=== PATIENT | female | born 1980 | race Caucasian/White ===

== ENCOUNTER → 2023-02-13 17:43 | Outpatient (BNVA) | payer OTHER, MEDICAID, SELFPAY | PROVIDERS: Family Provider Family Medicine; PCP Nurse Practitioner Family; Visit Provider Family Medicine | DX: S83.8X2A Sprain of other specified parts of left knee, initial encounter (principal); X58.XXXA Exposure to other specified factors, initial encounter | CPT/HCPCS: 73562 ==

== ENCOUNTER 2023-06-13 19:30 | Emergency (ER) | payer OTHER, BC, MEDICAID, SELFPAY ==
--- NOTE | 2023-06-13 19:41 | USR_ITS ---
PROCEDURE INFORMATION: Exam: US Duplex Left Lower Extremity Veins, Limited Exam date and time: 06/13/2023 8:23 PM Age: 42 years old Clinical indication: Edema, localized; Lower extremity, left; Additional info: Leg swelling TECHNIQUE: Imaging protocol: Real-time duplex ultrasound of the left extremity with 2-D ucriel scale, color Doppler flow and spectral waveform analysis including responses to compression and other maneuvers (when performed) with image documentation. Limited exam focused on the left lower extremity veins. COMPARISON: [place] [id number] 01/06/2019 4:02 PM FINDINGS: Left deep veins: The common femoral, femoral, proximal profunda femoral, popliteal, peroneal and posterior tibial veins are patent without thrombus. Normal Doppler waveforms. Normal compressibility and/or augmentation response. Superficial veins: Greater saphenous vein at the saphenofemoral junction is patent without thrombus. The greater saphenous vein is patent in its entirety. Soft tissues: Unremarkable. US/[place] [id number] IMPRESSION: No evidence of deep vein thrombosis in the left lower extremity.
[2023-06-13 19:52] VITALS: BP 175/97; PULSE 74; RESP 16; TEMP 36.4; O2SAT 100; BMI 39.1
--- NOTE | 2023-06-13 20:12 | XRR_ITS ---
PROCEDURE INFORMATION: Exam: XR Left Knee Exam date and time: 06/13/2023 8:35 PM Age: 42 years old Clinical indication: Patient HX: Left posterior knee pain; No known injury TECHNIQUE: Imaging protocol: Radiologic exam of the left knee. Views: 3 views. COMPARISON: CR XR knee LT 3V* [id number] 02/13/2023 5:50 PM FINDINGS: Bones/joints: There are no fractures or dislocations noted. There is a suprapatellar effusion. Soft tissues: Normal. XR/XR knee LT 3V* [id number] IMPRESSION: Suprapatellar effusion with no fracture noted. Underlying ligamentous injury can not be excluded, recommend clinical correlation and follow-up with MRI as indicated.
--- NOTE | 2023-06-13 20:22 | ED_ITS ---
HPI - Extremity Problem General: Chief complaint: Extremity Injury, Lower Stated complaint: Left leg pain/Swelling Time Seen by Provider: 06/13/23 20:20 History of Present Illness: 42-year-old female comes in today with c omplaints of left leg pain radiating from her calf to her hip. Patient reports a lot of the pain is in the knee itself. Patient appears nontoxic. Patient appears in no acute distress. No obvious redness is noted to the extremity. Sensation and cap refill is intact. Patient denies any recent injury. Patient reports no falls. Review of Systems General: Reports: 10 or more systems reviewed and unremarkable except in HPI and below Musc: Reports: extremity pain Physical Exam Const: COMMON NORMALS: alert HENMT: COMMON NORMALS: normocephalic HEAD & SCALP: normocephalic Neck/C-Spine: COMMON NORMALS: full ROM Resp: COMMON NORMALS: normal respiratory effort and clear to auscultation bilaterally AUSCULTATION: clear to auscultation bilaterally Cardio: COMMON NORMALS: regular rate RATE: regular rate GI: COMMON NORMALS: non-tender Back/Pelvis: COMMON NORMALS: thoracic and lumbar spine normal to inspection Extremity: RIGHT LOWER EXTREMITY: Yes lower leg (No redness minimal swelling) Neuro: SENSORIUM/ORIENTATION: Yes alert Skin: COMMON NORMALS: turgor normal GENERAL SKIN EXAM: turgor normal Course Vital Signs: Vital signs: Vital Signs Temperature 97.5 F L 06/13/23 19:52 Pulse Rate 74 06/13/23 19:52 Respiratory Rate 16 06/13/23 19:52 Blood Pressure 175/97 06/13/23 19:52 Pulse Oximetry 100 06/13/23 19:52 Oxygen Delivery Me thod Room Air 06/13/23 19:52 MDM - Extremity (Nontraumatic) Medical Decision Making Patient presents with complaints of left lower extremity pain. On exam there is no significant redness and minimal swelling. Patient has normal range of motion of the knee. Some joint line tenderness on palpation. Differential diagnosis includes not limited to DVT, piriformis syndrome, lumbar radiculopathy, osteoarthritis of the knee. Ultrasound of the left lower extremity note indicated no DVT. X-ray showed mild degenerative joint disease without any signs of bony abnormalities. Reviewed exam with patient with recommendation for trial of naproxen to help with pain and discomfort. Recommended ice or heat for further pain. Patient reports understanding of care plan and need for follow-up or return to the ER. XR interpretation done by ED provider, pending radiology final review Discharge Plan Discharge Patient Disposition: Home Clinical Impression: Arthralgia of knee, left Condition: Stable Prescriptions: New naproxen 500 mg tablet 500 mg PO BID Qty: 30 0RF Discharge Orders: Discharge ED (Routine); Ordered 06/13/23 Ordered By: Edy Rea Referrals: Maddison Johnson MD [Primary Care Provider] - Padmini Bob MD [Family Provider] - Discharge Diet: Usual diet Discharge Activity: Increase activity as tolerated Patient Instructions: Knee Pain (ED) Activity Restrictions/Additional Instructions: Activity as tolerated. Take naproxen 500 mg twice a day for pain and inflammation. Use acetaminophen for further pain relief. Use ice or heat for further pain relief. Activity as tolerated. Follow-up with primary care, return to ED for new concerns. Coding Level of Care Code ED [employer] Laboratory Technician for Uli Garcia
[2023-06-13 21:25] VITALS: PULSE 64; RESP 16; O2SAT 100
[2023-06-13] MEDS: ketorolac 30 mg/mL INJ IM (21:28)
[2023-06-13 21:31] VITALS: BP 185/104
--- NOTE | 2023-06-13 21:31 | PC.NURSE ---
pt is asymptomatic with bp elevated. States she is hurting and most likely due to that. Pt educated to follow up with primary care to follow up with knee and blood pressure.
== END 2023-06-13 21:34 | disposition home or self-care (01) ==
PROVIDERS: Emergency Provider Nurse Practitioner Family; Family Provider Family Medicine; PCP Family Medicine
DX: M25.562 Pain in left knee (principal)
CPT/HCPCS: 73562; 93971; 96372; 99284; J1885